=== PATIENT | male | born 1955 | race Caucasian/White ===

== ENCOUNTER 2020-05-14 11:44 | Emergency (ER) | payer MEDICARE, OTHER ==
[~2020-05-14] VITALS: Ht 188 cm; Wt 100.0 kg
[2020-05-14] MEDS ORDERED: IBU800 M1 PO (12:12)
[2020-05-14] MEDS ORDERED: CELEBREX50 MG (12:12)
[2020-05-14] MEDS ORDERED: PEPCID40 MG PO (12:56)
[2020-05-14] MEDS ORDERED: MEDROL 4MG DOSPA4 MG PO (12:56)
[2020-05-14 13:00] VITALS: BP 124/78; PULSE 73
== END 2020-05-14 13:00 | disposition home or self-care (01) ==
LOC: COL.ER 11:44
DX: T63.441A Toxic effect of venom of bees, accidental (unintentional), initial encounter (principal); S51.832A Puncture wound without foreign body of left forearm, initial encounter; M79.89 Other specified soft tissue disorders; R42 Dizziness and giddiness; R11.0 Nausea

== ENCOUNTER 2021-09-22 15:41 | Emergency (ER) | payer MEDICARE, OTHER ==
[~2021-09-22] VITALS: Ht 188 cm; Wt 96.4 kg
[~2021-09-22 15:41] MED LIST: CELEBREX50 MG; IBU800 M1 PO; MEDROL 4MG DOSPA4 MG PO; PEPCID40 MG PO
[2021-09-22 15:47] VITALS: TEMP 98.6
[2021-09-22 16:45] LABS: BASO % 0.5 % (0.0-2.0); EOS # 0.2 K/mm3 (0.0-0.7); EOS % 2.9 % (0-4.0); GRAN # 5.7 K/mm3 (1.4-6.5); GRAN % 75.9 % (42.2-75.2); HEMATOCRIT 45.7 % (42.0-52.0); HEMOGLOBIN 15.8 g/dl (13.5-18.0); LYMPH # 0.6 K/mm3 (1.2-3.4); LYMPH % 7.5 % (20.0-51.0); MEAN CELL VOLUME 94 fl (80.0-100.0); MEAN CORPUSCULAR HEMOGLOBIN 32 pg (27.0-31.0); MEAN CORPUSCULAR HGB CONC 35 g/dl (33.0-37.0); MEAN PLATELET VOLUME 8.6 fl (7.4-10.4); MONO % 12.8 % (1.7-9.3); PLATELET COUNT 223 K/mm3 (130-400); RED BLOOD COUNT 4.89 M/mm3 (4.20-5.60); REDCELL DISTRIBUTION WIDTH-CV 12.8 % (11.5-14.5)
[2021-09-22 17:01] LABS: ALBUMIN 3.9 gm/dL (3.4-4.8); BILIRUBIN,TOTAL 0.9 mg/dL (0.2-1.2); C-REACTIVE PROTEIN 1.38 mg/dL (0.00-0.50); CALCIUM 9.4 mg/dL (8.4-10.2); CREATININE, serum 1.17 mg/dL (0.72-1.25); POTASSIUM 4.5 mmol/L (3.5-4.5); TOTAL PROTEIN 7.1 gm/dL (6.2-8.1)
[2021-09-22] MEDS ORDERED: PREDNISONE20 MG PO (18:08)
[2021-09-22] MEDS ORDERED: CEPHALEXIN500 M1 PO (18:08)
[2021-09-22 18:35] VITALS: BP 152/80; PULSE 80
== END 2021-09-22 18:35 | disposition home or self-care (01) ==
LOC: COL.ER 15:41
PROVIDERS: Family Medicine
DX: K11.5 Sialolithiasis (principal); K21.9 Gastro-esophageal reflux disease without esophagitis; Z79.899 Other long term (current) drug therapy
CPT/HCPCS: Q9967